=== PATIENT | female | born 1940 | race Caucasian/White ===

== ENCOUNTER 2017-12-04 11:15 | Emergency (ER) | payer MEDICARE, OTHER ==
[~2017-12-04 11:15] MED LIST: ACET-1927 PO; ACET-3017 PO; ACYC-50 PO; ALE70 PO; ASPI-757 PO; ATOR10TA65 PO; CHOL200025 PO; GABA-547 PO; HYDR-4309 PO; KET10 PO; LISI-1 PO; LISI-362 PO; LOSA100T67 PO; LOSA50TA72 PO; MET50 PO; METH-543 PO; METO-1 PO; METO-253 PO; OMEG-11 PO; OMEP-137 PO; OMEP-218 PO; OXYGENHOME INH; PANTOPRAZOLE PO; PNEU0.5D3 IM; PRAM0.5T27 PO; SPIR25TA78 PO
[2017-12-04] MEDS ORDERED: NS(*) 0.9% 1000 ML BAG 1,000 ML IV ONE (11:34)
--- NOTE | 2017-12-04 11:35 | ER Report ---
History and Physical Time Seen By MD: 11:17 Hx. of Stated Complaint: PATIENT REPORTS 7/10 CHEST PAIN THAT STARTED AROUND 10 AM. PATIENT REPORTS THAT THE PAIN IS NOW A 1/10 AND IS JUST A DULL ACHE HPI/ROS CHIEF COMPLAINT: Chest pain HISTORY OF PRESENT ILLNESS: Patient presents to ED with complaints of chest pain that started around 10 am and last 15 minutes. Pt states that she was "doing laundry at the time." Denies any physical exertion at the time of chest pain. Reports the pain as sharp and localized to sternum. Denies radiating pain. She reports pain resolved following rest and "felt two twinges in the same region a little time after." REVIEW OF SYSTEMS: Respiratory: No cough, no dyspnea. Cardiovascular: Reports chest pain this earlier, denies chest pain at this time , no palpitations. Gastrointestinal: No vomiting, no abdominal pain. Musculoskeletal: No back pain. Allergies: Coded Allergies: Sulfa (Sulfonamide Antibiotics) (Verified Allergy, Mild, rash, 11/26/16) amoxicillin (Verified Allergy, Mild, hives, 11/26/16) clavulanic acid (Verified Allergy, Mild, hives, 11/26/16) erythromycin base (Unverified Allergy, Unknown, nausea, diarrhea, 11/26/16) hydrocodone (Verified Adverse Reaction, Mild, NAUSEA, 11/26/16) raloxifene (Verified Adverse Reaction, Mild, elevated BP, 11/26/16) lisinopril (Verified Adverse Reaction, Unknown, cough, 11/26/16) Home Meds Active Scripts Losartan Potassium (LOSARTAN POTASSIUM) 100 Mg Tablet, 1 TAB PO QDAY, #90 TAB 3 Refills Prov:SANTO HERNANDEZ MD 02/13/17 Pramipexole Di-Hcl (MIRAPEX) 0.5 Mg Tablet, 1 TAB PO QPM, #90 TAB 3 Refills Prov:SANTO HERNANDEZ MD 02/05/17 Atorvastatin Calcium (ATORVASTATIN CALCIUM) 10 Mg Tablet, 1 TAB PO QDAY, #90 TAB 4 Refills Prov:SANTO HERNANDEZ MD 02/05/17 Spironolactone (SPIRONOLACTONE) 25 Mg Tablet, 1 TAB PO QDAY, #90 TAB 4 Refills Prov:SANTO HERNANDEZ MD 01/08/17 Metoprolol Tartrate (METOPROLOL TARTRATE) 50 Mg Tab, 1 TAB PO BID, #180 TAB 4 Refills Prov:SANTO HERNANDEZ MD 01/08/17 Omeprazole (OMEPRAZOLE) 20 Mg Tablet.dr, 1 TAB PO BID, #180 TAB 4 Refills Prov:SANTO HERNANDEZ MD 01/08/17 Reported Medications Aspirin (ASPIRIN) 325 Mg Tablet, 1 TAB PO QDAY, TAB 12/13/14 Hopkins-3 Fatty Acids/Fish Oil (FISH OIL 1,000 MG CAPSULE) 1 Each Capsule, 1 CAP PO BID, CAPSULE 12/13/14 Cholecalciferol (Vitamin D3) (VITAMIN D3) 2,000 Unit Capsule, 1 CAP PO BID, CAPSULE 12/13/14 Discontinued Scripts Acyclovir (ACYCLOVIR) 400 Mg Tablet, 1 TAB PO TID Y for outbreak, #15 TAB 3 Refills Prov:SANTO HERNANDEZ MD 04/02/17 Past Medical/Surgical History Reports 15 year history of HTN. Reports she has been taking cholesterol x 1 year for HLD. Negative smoking hx. Hx Smoking: No Smoking Status: Never Smoker Exposure to Second Hand Smoke?: No Hx Substance Use Disorder: No Hx Alcohol Use: No Constitutional Vital Sign - Last 24 Hours 12/04/17 12/04/17 12/04/17 12/04/17 11:18 11:19 11:30 12:00 Temp 97.8 Pulse 69 60 56 Resp 20 18 16 B/P (MAP) 193/96 (128) 174/88 (116) 170/75 (106) Pulse Ox 94 94 93 O2 Delivery Room Air 12/04/17 12/04/17 12/04/17 12/04/17 12:05 12:30 12:35 13:04 Pulse 57 59 Resp 16 20 B/P (MAP) 157/75 (102) 184/86 (118) Pulse Ox 91 94 12/04/17 12/04/17 12/04/17 12/04/17 13:05 13:30 13:35 13:40 Pulse 59 64 58 Resp 19 19 36 B/P (MAP) 151/77 (101) Pulse Ox 96 93 95 12/04/17 12/04/17 12/04/17 14:00 14:10 14:17 Pulse 61 Resp 14 B/P (MAP) 165/74 (104) 167/78 (107) Pulse Ox 94 Intake and Output 4/4/18 4/4/18 4/5/18 15:00 23:00 07:00 Intake Total 500 ml Balance 500 ml Physical Exam General Appearance: The patient is alert, has no immediate need for airway protection and no current signs of toxicity. Eyes: Pupils equal and round no injection. Respiratory: Chest is non tender, lungs are clear to auscultation. Cardiac: regular rate and rhythm Gastrointestinal: Abdomen is soft and non tender, no masses, bowel sounds normal. Musculoskeletal: Neck: Neck is supple and non tender. Extremities have full range of motion and are non tender. Skin: No rashes or lesions. DIFFERENTIAL DIAGNOSIS: After history and physical exam differential diagnosis was considered for acute coronary syndrome, heart attack, or angina. Medical Decision Making Data Points Result Diagram: 12/04/17 1122 12/04/17 1122 Laboratory Hematology Test 12/04/17 11:22 12/04/17 13:45 Red Blood Count 4.40 M/uL (4.17-5.56) Mean Corpuscular Volume 91.9 fL (80.0-96.0) Mean Corpuscular Hemoglobin 31.4 pg (26.0-33.0) Mean Corpuscular Hemoglobin Concent 34.1 g/dL (32.0-36.0) Red Cell Distribution Width 14.0 % (11.5-14.5) Mean Platelet Volume 7.5 fL (7.2-11.1) Neutrophils (%) (Auto) 61.5 % (39.4-72.5) Lymphocytes (%) (Auto) 27.9 % (17.6-49.6) Monocytes (%) (Auto) 6.3 % (4.1-12.4) Eosinophils (%) (Auto) 3.4 % (0.4-6.7) Basophils (%) (Auto) 0.9 % (0.3-1.4) Nucleated RBC Relative Count (auto) 0.0 /100WBC Neutrophils # (Auto) 7.2 K/uL (2.0-7.4) Lymphocytes # (Auto) 3.2 K/uL (1.3-3.6) Monocytes # (Auto) 0.7 K/uL (0.3-1.0) Eosinophils # (Auto) 0.4 K/uL (0.0-0.5) Basophils # (Auto) 0.1 K/uL (0.0-0.1) Nucleated RBC Absolute Count (auto) 0.00 K/uL Peripheral Blood Smear No Y/N Sodium Level 139 mmol/L (137-145) Potassium Level 4.7 mmol/L (3.5-5.0) Chloride Level 101 mmol/L (98-107) Carbon Dioxide Level 24 mmol/L (22-31) Blood Urea Nitrogen 19 mg/dl (7-18) Creatinine 1.00 mg/dl (0.52-1.04) Glomerular Filtration Rate Calc 53.9 Random Glucose 99 mg/dl (75-110) Calcium Level 9.4 mg/dl (8.4-10.2) Total Bilirubin 0.4 mg/dl (0.2-1.3) Aspartate Amino Transf (AST/SGOT) 30 U/L (0-35) Alanine Aminotransferase (ALT/SGPT) 47 U/L (0-56) Alkaline Phosphatase 114 U/L (0-126) Total Protein 7.2 gm/dl (6.3-8.2) Albumin 4.1 g/dl (3.5-5.0) Troponin I < 0.012 ng/ml Chemistry Test 12/04/17 11:22 12/04/17 13:45 White Blood Count 11.6 k/uL (4.5-11.0) Red Blood Count 4.40 M/uL (4.17-5.56) Hemoglobin 13.8 g/dL (12.0-16.0) Hematocrit 40.5 % (34.0-47.0) Mean Corpuscular Volume 91.9 fL (80.0-96.0) Mean Corpuscular Hemoglobin 31.4 pg (26.0-33.0) Mean Corpuscular Hemoglobin Concent 34.1 g/dL (32.0-36.0) Red Cell Distribution Width 14.0 % (11.5-14.5) Platelet Count 287 K/uL (150-450) Mean Platelet Volume 7.5 fL (7.2-11.1) Neutrophils (%) (Auto) 61.5 % (39.4-72.5) Lymphocytes (%) (Auto) 27.9 % (17.6-49.6) Monocytes (%) (Auto) 6.3 % (4.1-12.4) Eosinophils (%) (Auto) 3.4 % (0.4-6.7) Basophils (%) (Auto) 0.9 % (0.3-1.4) Nucleated RBC Relative Count (auto) 0.0 /100WBC Neutrophils # (Auto) 7.2 K/uL (2.0-7.4) Lymphocytes # (Auto) 3.2 K/uL (1.3-3.6) Monocytes # (Auto) 0.7 K/uL (0.3-1.0) Eosinophils # (Auto) 0.4 K/uL (0.0-0.5) Basophils # (Auto) 0.1 K/uL (0.0-0.1) Nucleated RBC Absolute Count (auto) 0.00 K/uL Peripheral Blood Smear No Y/N Glomerular Filtration Rate Calc 53.9 Calcium Level 9.4 mg/dl (8.4-10.2) Total Bilirubin 0.4 mg/dl (0.2-1.3) Aspartate Amino Transf (AST/SGOT) 30 U/L (0-35) Alanine Aminotransferase (ALT/SGPT) 47 U/L (0-56) Alkaline Phosphatase 114 U/L (0-126) Total Protein 7.2 gm/dl (6.3-8.2) Albumin 4.1 g/dl (3.5-5.0) Troponin I < 0.012 ng/ml EKG/Imaging EKG Interpretation 12 lead EK Rhythm: normal sinus rhythm Hurst: normal QRS: normal ST segments: normal 12 lead EK Rhythm: normal sinus rhythm Hurst: normal QRS: normal ST segments: normal ED Course/Re-evaluation ED Course Patient was admitted to examined, history and physical were obtained. Differential diagnoses were considered. On examination lungs are clear, heart is regular, abdomen soft nontender. Patient had no palpable chest tenderness. A CBC, CMP, troponin, EKG, chest x-ray were done. Lab results were unremarkable, patient did have an elevated BUN of 19, white count was slightly elevated at 11.6. Troponin however was negative, EKG showed normal sinus rhythm. Chest x- ray showed no acute cardiopulmonary processes. A repeat troponin was done. That was done approximately 4 hours after the initial onset of chest pain. His repeat troponin was negative, a repeat EKG was at that time which also showed a normal sinus rhythm. I discussed the findings with the patient and her . We will go ahead and discharge patient home at this time. Was discussed with patient that she should have a stress test done to make sure that there is no blockages in the heart. The patient is to return to the emergency room with any worsening condition. Patient verbalized understanding and agreement with plan. Decision to Disposition Date: Dec 04, 2017 Decision to Disposition Time: 14:20 Depart Departure Latest Vital Signs Vital Signs Date Time Temp Pulse Resp B/P (MAP) Pulse Ox O2 Delivery O2 Flow Rate FiO2 12/04/17 14:17 167/78 (107) 12/04/17 14:10 61 14 94 12/04/17 11:19 97.8 Room Air Impression: Primary Impression: Chest pain Condition: Improved Disposition: HOME OR SELF-CARE Referrals: SANTO HERNANDEZ MD (PCP) Patient Instructions: Chest Pain (ED) Additional Instructions: Follow up with primary care provider to discuss future stress test. Return to Emergency Department if symptoms worsen. Continue current medications as prescribed. Problem Qualifiers Primary Impression: Chest pain Chest pain type: other chest pain Qualified Codes: R07.89 - Other chest pain PIEDAD MUNGUIA Dec 04, 2017 11:35
[2017-12-04 11:44] LABS: PLATELET COUNT, AUTOMATED 287 K/uL (150-450)
--- NOTE | 2017-12-04 12:05 | EKG ---
FACILITY: [facility] [place] PATIENT NAME: CRYS PUENTE : [id number] MR: [id number] V: [id number] EXAM DATE: ORDERING PHYSICIAN: PIEDAD MUNGUIA TECHNOLOGIST: AVA Sheth Reason : CP Blood Pressure : / mmHG Vent. Rate : 067 BPM Atrial Rate : 067 BPM P-R Int : 166 ms QRS Dur : 082 ms QT Int : 370 ms P-R-T Axes : 072 018 036 degrees QTc Int : 390 ms Normal sinus rhythm Normal ECG When compared with ECG of 20-AUG-2016 09:24, T wave inversion no longer evident in Inferior leads Confirmed by CASS LAGUNA ([id number]) on 12/04/2017 5:45:15 PM Referred By: CARLOS Confirmed By:CASS LAGUNA
--- NOTE | 2017-12-04 12:31 | RADIOLOGY IMAGING REPORT ---
FACILITY: [facility] [place] PATIENT NAME: Merary Dwyer : 1940 MR: [id number] V: [id number] EXAM DATE: ORDERING PHYSICIAN: PIEDAD MUNGUIA TECHNOLOGIST: Location: Patient: Merary Dwyer : 1940 Visit/Account:[id number] Date of Sevice: 12/04/2017 CHEST PA AND LAT History: Chest pain Comparison 08/20/2016. FINDINGS: Minimal scarring left lateral midlung unchanged. No consolidation or effusion. Heart size and mediast inal contour within normal limits. IMPRESSION: No evidence of acute cardiopulmonary disease. Report Dictated By: Ubaldo Rodriguez MD at 12/04/2017 12:24 PM Report E-Signed By: Ubaldo Rodriguez MD at 12/04/2017 12:27 PM WSN:[id number]
--- NOTE | 2017-12-04 13:56 | EKG ---
FACILITY: [facility] [place] PATIENT NAME: CRYS PUENTE : [id number] MR: [id number] V: [id number] EXAM DATE: ORDERING PHYSICIAN: PIEDAD MUNGUIA TECHNOLOGIST: AVA Sheth Reason : REPEAT Blood Pressure : / mmHG Vent. Rate : 060 BPM Atrial Rate : 060 BPM P-R Int : 166 ms QRS Dur : 072 ms QT Int : 396 ms P-R-T Axes : 059 018 025 degrees QTc Int : 396 ms Normal sinus rhythm Normal ECG When compared with ECG of 04-DEC-2017 11:15, No significant change was found Confirmed by CASS LAGUNA ([id number]) on 12/04/2017 5:47:35 PM Referred By: CARLOS Confirmed By:CASS LAGUNA
[2017-12-04 14:17] VITALS: BP 167/78
== END 2017-12-04 14:35 | disposition home or self-care (01) ==
LOC: ER 11:30
DX: R07.89 Other chest pain (principal)
CPT/HCPCS: 71046; 84484; 85025; 93005; 96360; 96361; 99284; J7030; 82040; 82247; 82310; 82374; 82435; 82565; 82947; 84075; 84132; 84155; 84295; 84450; 84460; 84520

== ENCOUNTER → 2017-12-25 | Outpatient (CLI) | payer MEDICARE, OTHER ==
--- NOTE | 2017-12-25 14:48 | RADIOLOGY IMAGING REPORT ---
FACILITY: [facility] - [place] PATIENT NAME: CRYS PUENTE : [id number] MR: [id number] V: [id number] EXAM DATE: [id number] ORDERING PHYSICIAN: SHIVAM HERNANDEZ TECHNOLOGIST: Shivam Ramsey PROCEDURE: STRESS ECHOCARDIOGRAPHY COMPARISON: None. INDICATIONS: CHEST PAIN FINDINGS: After informed consent the patient was exercised using the Logan protocol. She was able to complete the end of Stage 2 of the Logan protocol at which time she achieved 94% of her predicted maximum heart rate. The patient had no complaints of any chest pains or any chest pressure. There were no ST segment changes & no arrhythmias noted. The baseline EKG was within normal limits. ECHOCARDIOGRAPHIC PORTION OF THE STRESS TEST: At rest the patient had normal left ventricular ejection fraction of 74% with a Grade 1 mild decrease in diastolic function. There was a trace of mitral, tricuspid & pulmonic insufficiency with right ventricular pressures totaling 40mm Hg which is slightly elevated. Right ventricle appeared to contract normally. With exercise the patient had normal hyperdynamic response to exercise with no left ventricular segmental wall motion abnormalities. CONCLUSION: 1. Normal stress echocardiograph with normal LV function systolically at rest with hyperdynamic response to exercise & low probability of ischemia. 2. A Grade 1 mild decrease in diastolic function. 3. A trace of mitral, tricuspid & pulmonic insufficiency with right ventricular systolic pressures totaling 40mm Hg which is slightly elevated. Right ventricle appears to contract normally. No other abnormalities were noted. Dictated by: Tammy Suazo M.D. on 12/25/2017 at 9:19 Transcribed by: ADAM on 12/25/2017 at 10:48 Approved by: Tammy Suazo M.D. on 12/25/2017 at 14:47 [facility]
== END ==
LOC: US 00:40
PROVIDERS: ATTEND Internal Medicine
DX: I34.0 Nonrheumatic mitral (valve) insufficiency (principal); I36.1 Nonrheumatic tricuspid (valve) insufficiency; I37.1 Nonrheumatic pulmonary valve insufficiency
CPT/HCPCS: 93017; 93325; 93350

== ENCOUNTER → 2018-02-18 | Outpatient (CLI) | payer MEDICARE, OTHER ==
--- NOTE | 2018-02-18 15:09 | RADIOLOGY IMAGING REPORT ---
FACILITY: [facility] [place] PATIENT NAME: CRYS PUENTE : [id number] MR: [id number] V: [id number] EXAM DATE: ORDERING PHYSICIAN: SANTO HERNANDEZ TECHNOLOGIST: Glo Bowles PROCEDURE:BILATERAL DIGITAL SCREENING MAMMOGRAM WITH CAD ASSISTED INTERPRETATION & 3D TOMOSYNTHESIS COMPARISON:Prior mammograms 01/30/17, 09/26/15, 08/18/14, 08/17/13, 05/16/12, 05/14/11. INDICATIONS:SCREENING FINDINGS: A small to moderate amount of fibroglandular tissue is seen throughout the breasts. The parenchymal pattern has remained stable allowing for difference in mammographic technique & patient positioning. There is no evidence of malignant appearing mass, malignant appearing calcifications or other secondary sign of malignancy in either breast. DIAGNOSTIC CATEGORY 1--NEGATIVE. RECOMMENDATIONS: ROUTINE MAMMOGRAM AND CLINICAL EVALUATION. IMPRESSION: BIRADS 1: Negative. No significant abnormality is seen. Dictated by: Cathy David M.D. on 02/18/2018 at 14:58 Transcribed by: MARIVEL on 02/18/2018 at 15:04 Approved by: Cathy David M.D. on 02/18/2018 at 15:07 [facility]
== END ==
LOC: MAMO 00:56
PROVIDERS: ATTEND Internal Medicine
DX: Z12.31 Encounter for screening mammogram for malignant neoplasm of breast (principal)
CPT/HCPCS: 77063; 77067

== ENCOUNTER → 2019-02-19 | Outpatient (CLI) | payer MEDICARE, OTHER ==
[~2019-02-19] MED LIST changes: +ASPI81TA94 PO; -HYDR-4309 PO; +HYDR-653 PO; -LOSA100T67 PO; +LOSA100T75 PO; -LOSA50TA72 PO; +LOSA50TA80 PO; +MELA5TAB3 PO; +SPIR25TA80 PO
== END ==
LOC: LAB 13:16
PROVIDERS: ATTEND Emergency Medicine
DX: M85.80 Other specified disorders of bone density and structure, unspecified site (principal)
CPT/HCPCS: 36415; 82306

== ENCOUNTER → 2019-04-09 | Outpatient (CLI) | payer MEDICARE, OTHER ==
--- NOTE | 2019-04-09 12:09 | RADIOLOGY IMAGING REPORT ---
[place]AC[place]: [facility] [place]IENT NAME: Merary Dwyer : 1940 MR: [id number] V: [id number] EXAM DATE: ORDERING PHYSICIAN: PATRICIA SORIANO TECHNOLOGIST: Location: [facility] Patient: Merary Dwyer : 1940 Visit/Account:[id number] Date of Sevice: 04/09/2019 DEXA Scan Clinical history: Postmenopausal estrogen deficiency. Comparison: DEXA scan from 01/30/2017. LUMBAR SPINE: The bone mineral density (BMD) measured from L1-L4 correlates with a Z-score of 0.9 and a T-score of -0.9 which is Normal as defined by the World Health Organization. The corresponding risk of fracture in the lumbar spine is 1-2 times increased compared with a young adult reference population. This v alue has not changed since the prior study. More than 5% change is considered significant. HIP: Bone mineral density (BMD) measured in the LEFT total hip region correlates with a Z-score 0.8 and a T-score of -1.2 which is osteopenia as defined by the World Health Organization. The corresponding r isk of fracture in the hip is 2-3 times increased compared to a young adult reference population. Thi s value has increased by 0.1 % since the prior study. More than 5% change is considered significant. T score left femoral neck -1.7 Bone mineral density (BMD) measured in the Femoral Neck region measures 0.806 g/cm?. IMPRESSION: 1. Lumbar spine: Normal. There has been No significant change in the bone mineral density since the previous exam. 2. Left Total Hip: Osteopenia. There has been 0.1% increase in the bone mineral density since the p revious exam. 3. Femoral Neck: Bone Mineral Density is 0.806 g/cm? The next DEXA scan of this patient should include the following sites: L1-L4 and the left hip. FRAX? WHO Fracture Risk Assessment Tool link: <http://www.shef.ac.uk/FRAX/tool.jsp?locationValue=9> PLEASE NOTE: 1) The World Health Organization defines low BMD as follows: T-score Normal > -1 Osteopenia < -1 and > -2.5 Osteoporosis < -2.5 without fractures Established osteoporosis < -2.5 with fractures 2) In general, you may wish to consider: Diagnosis Treatment Follow-up DEXA Normal BMD Prevention 2-3 years Osteopenia Prevention/therapy 1-2 years Osteoporosis Therapy Yearly 3) Fracture risk estimated from the T-score is more accurate for vertebral fractures (often spontane ous) than for hip fractures. Report Dictated By: Cathy David MD at 04/09/2019 11:45 AM Report E-Signed By: Cathy David MD at 04/09/2019 12:01 PM WSN:[id number]
--- NOTE | 2019-04-10 12:06 | RADIOLOGY IMAGING REPORT ---
FACILITY: [facility] - [place] PATIENT NAME: CRYS PUENTE : [id number] MR: [id number] V: [id number] EXAM DATE: ORDERING PHYSICIAN: PATRICIA SORIANO TECHNOLOGIST: lEi Becker PROCEDURE: BILATERAL DIGITAL SCREENING MAMMOGRAM WITH CAD ASSISTED INTERPRETATION & 3D TOMOSYNTHESIS. REASON FOR STUDY: Screening. FAMILY HISTORY OF BREAST CANCER: 2 sisters. BREAST PROCEDURES/TREATMENTS: None. COMPARISON: 02/18/18, 01/30/17, 09/26/15, 08/18/14, 08/17/13, 05/16/12. VIEWS OBTAINED: Bilateral 2D & 3D full field CC & MLO projections. BREAST DENSITY: There are scattered areas of fibroglandular density throughout the breasts. MAMMOGRAM FINDINGS: The parenchymal pattern has remained stable allowing for difference in mammographic technique & patient positioning. IMPRESSION: BIRADS 1: Negative. DIAGNOSTIC CATEGORY 1--NEGATIVE. RECOMMENDATIONS: ROUTINE MAMMOGRAM AND CLINICAL EVALUATION. Dictated by: Cathy David M.D. on 04/09/2019 at 16:31 Transcribed by: MARIVEL on 04/10/2019 at 10:07 Approved by: Cathy David M.D. on 04/10/2019 at 12:01 [facility]
== END ==
LOC: MAMO 00:43
PROVIDERS: ATTEND Emergency Medicine
DX: Z12.31 Encounter for screening mammogram for malignant neoplasm of breast (principal); M85.88 Other specified disorders of bone density and structure, other site
CPT/HCPCS: 77063; 77067; 77080